=== PATIENT | male | born 1990 | race African-American/Black ===

== ENCOUNTER 2022-01-27 14:01 | Emergency (ER) | payer BC, OTHER ==
[2022-01-27] MEDS ORDERED: Sodium Chloride 0.9% 10 ML Syringe FLUSH PRN (14:25)
[2022-01-27] MEDS: Sodium Chloride 0.9% 1,000 ML IV ONE (14:38)
[2022-01-27 15:16] LABS: ANION GAP 12.6 mmol/L (5-15); CHLORIDE,CL 101 mmol/L (98-107); ESTIMATED GFR 117 mL/min (>=60); SODIUM,NA 138 mmol/L (136-145)
[2022-01-27 15:26] LABS: CORONAVIRUS COVID-19 NAA NEGATIVE (NEGATIVE); RESPIRATORY SYNCYTIAL VIR NAA NEGATIVE (NEGATIVE)
[2022-01-27] MEDS: Sodium Chloride 0.9% 1,000 ML IV SCH (15:54)
[2022-01-27] MEDS ORDERED: Iopamidol 612 MG/ML 100 ML Bottle ONE (16:08)
== END 2022-01-27 17:55 | disposition home or self-care (01) ==
LOC: VM.ED 14:01
DX: E11.65 Type 2 diabetes mellitus with hyperglycemia (principal); Z88.2 Allergy status to sulfonamides; Z79.899 Other long term (current) drug therapy; Z79.84 Long term (current) use of oral hypoglycemic drugs; Z20.822 Contact with and (suspected) exposure to COVID-19
CPT/HCPCS: 0241U; 36415; 80053; 81003; 82803; 82947; 83605; 83735; 83880; 84100; 84484; 85025; 86140; 87040; 93005; 96360; 96361; 99284; 99284-25; J7030; Q9967